=== PATIENT | male | born 1950 ===

== ENCOUNTER → 2019-05-24 | Outpatient (CLI) | payer OTHER | LOC: GMAJ 17:18 | PROVIDERS: ATTEND Family Medicine | DX: Z00.00 Encounter for general adult medical examination without abnormal findings (principal); E03.9 Hypothyroidism, unspecified; E78.5 Hyperlipidemia, unspecified ==

== ENCOUNTER → 2020-05-15 | Outpatient (CLI) | payer OTHER | LOC: GMAJ 14:15 | PROVIDERS: ATTEND Family Medicine | DX: E03.9 Hypothyroidism, unspecified (principal); E78.5 Hyperlipidemia, unspecified; Z79.899 Other long term (current) drug therapy ==

== ENCOUNTER → 2020-05-19 | Outpatient (CLI) | payer OTHER | LOC: GMAJ 16:55 | PROVIDERS: ATTEND Family Medicine | DX: E03.9 Hypothyroidism, unspecified (principal); Z12.5 Encounter for screening for malignant neoplasm of prostate ==